=== PATIENT | male | born 1990 | race African-American/Black ===

== ENCOUNTER 2024-01-09 17:54 | Emergency (ER) | payer MEDICAID ==
[~2024-01-09] VITALS: Ht 177.8 cm; Wt 102.1 kg
[2024-01-09 18:30] VITALS: BP 133/71; TEMP 98.2; O2SAT 100
== END 2024-01-09 18:30 | disposition home or self-care (01) ==
LOC: ER 18:05
DX: S09.90XA Unspecified injury of head, initial encounter (principal); Z60.2 Problems related to living alone; W22.8XXA Striking against or struck by other objects, initial encounter; Y93.89 Activity, other specified; Y92.89 Other specified places as the place of occurrence of the external cause; Y99.8 Other external cause status